=== PATIENT | female | born 1980 | race African-American/Black ===

== ENCOUNTER 2017-01-09 13:44 | Outpatient (CLI) | payer OTHER ==
[~2017-01-09] VITALS: Ht 157.5 cm; Wt 77.7 kg
[~2017-01-09 13:44] MED LIST: ACET500C PO; COLA100C5 PO; IBUP-1114 PO; PERC5TAB12 PO; PREN27TA3 PO
[2017-01-09 13:58] VITALS: BP 116/65
== END 2017-01-09 15:07 | disposition home or self-care (01) ==
LOC: M LDO 13:44
PROVIDERS: ATTEND Obstetrics & Gynecology
DX: O36.8130 Decreased fetal movements, third trimester, not applicable or unspecified (principal); Z3A.31 31 weeks gestation of pregnancy; Z88.7 Allergy status to serum and vaccine

== ENCOUNTER 2017-03-06 10:00 | Inpatient (IN) | payer OTHER ==
[~2017-03-06] VITALS: Ht 157.5 cm; Wt 75.2 kg
[2017-03-15] VITALS (7 sets, daily range): BP systolic 101–114; BP diastolic 59–69
[2017-03-15] MEDS ORDERED: LR 1,000 ML IV SCH ×4 (09:30→12:30)
[2017-03-15] MEDS ORDERED: BICITRA 30ML SOLN UDC PO ONE ×2 (09:45)
[2017-03-15 09:46] LABS: MEAN CORPUSCULAR HEMOGLOBIN 29.7 pg (27.0-33.0); MEAN CORPUSCULAR HGB CONC 33.2 g/dl (32.0-36.5); MEAN CORPUSCULAR VOLUME 89.4 fl (80.0-96.0); PLATELET COUNT, AUTOMATED 158 10^3/uL (150-450); RED CELL DISTRIBUTION WIDTH 14.2 % (11.5-14.5); WHITE BLOOD COUNT 6.3 10^3/uL (4.0-10.0)
[2017-03-15] MEDS ORDERED: NALOXONE INJ 0.4 MG/1 ML VIAL (J2310) IV PRN ×2 (10:49)
[2017-03-15] MEDS ORDERED: ONDANSETRON 4MG/2ML VIAL (J2405) IV PRN ×3 (10:49→12:30)
[2017-03-15] MEDS ORDERED: METOCLOPRAMIDE INJ 10MG/2ML VIAL (J2765) IV PRN ×2 (10:49→12:30)
[2017-03-15] MEDS ORDERED: NALBUPHINE HCL 10 MG/ML AMP (J2300) IV PRN (10:49)
[2017-03-15] MEDS ORDERED: MORPHINE PRES-FREE INJ 10 MG/10 ML VIAL (J2274) As Ordered ONE (10:58)
[2017-03-15] MEDS ORDERED: PHENYLephrine HCL 500 MCG/5 ML (100MCG/ML) SYRINGE (J2370) As Ordered ONE (10:58)
[2017-03-15] MEDS ORDERED: OXYTOCIN INJ 10 UNITS/ML VIAL (J2590) As Ordered ONE (10:59)
[2017-03-15] MEDS ORDERED: ePHEDrine SULFATE 25 MG/5 ML(5MG/ML) SYRINGE As Ordered ONE (10:59)
[2017-03-15] MEDS ORDERED: KETOROLAC 60 MG/2 ML VIAL (J1885) As Ordered ONE (10:59)
[2017-03-15] MEDS ORDERED: ONDANSETRON 4MG/2ML VIAL (J2405) As Ordered ONE (10:59)
[2017-03-15] MEDS ORDERED: MEASLES,MUMPS,RUBELLA VACCINE INJ (MMR-II) (90707) SC SCH (12:15)
[2017-03-15] MEDS ORDERED: PROMETHAZINE 25 MG TAB PO PRN (12:15)
[2017-03-15] MEDS ORDERED: RHOGAM 300 MCG (1500 IU) INJ (J2790) IM SCH (12:15)
[2017-03-15] MEDS ORDERED: PERCOCET 5MG/325MG TAB PO PRN ×2 (12:15→12:30)
[2017-03-15] MEDS ORDERED: METHYLERGONOVINE MALEATE 0.2 MG/ML VIAL (J2210) IM PRN (12:15)
[2017-03-15] MEDS ORDERED: fentaNYL 100 MCG/2 ML INJECTION (J3010) IV PRN (12:30)
[2017-03-15] MEDS ORDERED: KETOROLAC 30 MG/ML VIAL (J1885) IV SCH (13:00)
[2017-03-15] MEDS: PERCOCET 5MG/325MG TAB PO PRN (13:38)
[2017-03-15] MEDS: DOCUSATE SODIUM 100 MG CAP PO SCH ×2 (14:03→20:32)
[2017-03-15] MEDS: PRENATAL VITAMINS CHEWABLE TABLET PO SCH (14:04)
[2017-03-15] MEDS: KETOROLAC 30 MG/ML VIAL (J1885) IV SCH (17:53)
[2017-03-16] MEDS: KETOROLAC 30 MG/ML VIAL (J1885) IV SCH ×3 (00:01→12:04)
[2017-03-16 02:40] VITALS: BP 96/50
[2017-03-16 06:04] VITALS: BP 92/54
[2017-03-16 08:11] LABS: MEAN CORPUSCULAR HEMOGLOBIN 29.4 pg (27.0-33.0); MEAN CORPUSCULAR HGB CONC 32.4 g/dl (32.0-36.5); MEAN CORPUSCULAR VOLUME 90.8 fl (80.0-96.0); PLATELET COUNT, AUTOMATED 139 10^3/uL (150-450); RED CELL DISTRIBUTION WIDTH 14.3 % (11.5-14.5); WHITE BLOOD COUNT 7.9 10^3/uL (4.0-10.0)
[2017-03-16] MEDS: DOCUSATE SODIUM 100 MG CAP PO SCH ×2 (08:18→20:02)
[2017-03-16] MEDS: PRENATAL VITAMINS CHEWABLE TABLET PO SCH (08:18)
--- NOTE | 2017-03-16 08:39 | IPNPDOC ---
Progress Note Date of Service The patient was seen on 03/16/17 at 08:20. Progress Note POD 1 Veronica is a 36yo s/p uncomplicated RLTCS at 40w5d for hx of prior , now POD 1. She is doing well this morning. She is ambulating, voiding spontaneously and tolerating regular diet without issue. Minimal vaginal bleeding. Denies f/c/n/v/SOB/CP. Breast feeding well. Pain controlled on PO medications. Vitals wnl, afebrile General: WDWN, resting comfortably in bed Abdomen: soft, ND, appropriately tender, fundus firm at u-2cm, wound vac in place covering incision. No obvious erythema/drainage. Extremities: no pain with palpation of calves Labs: pre-op H/H 12/36.1 post-op H/H 10.2/31.5 Assessment: Veronica is a 36yo s/p uncomplicated RLTCS at 40w5d for hx of prior doing well POD 1. Vitals wnl, afebrile. Hemodynamically stable with no evidence of infection. She received 24hr of IV ancef and has wound vac in place for hx of wound infection after prior . Plan: -routine post-op and post- care -regular diet -motrin/percocet prn pain -wound vac in place will go home with patient -encourage breast feeding and ambulation -likely discharge home tomorrow Dr. Trinity Thompson MD [facility] VS, I&O, 24H, Fishbone Vital Signs/I&O Vital Signs Date Time Temp Pulse Resp B/P (MAP) Pulse Ox O2 Delivery O2 Flow Rate FiO2 03/16/17 06:04 98.1 76 16 92/54 (67) 03/16/17 02:40 99 Room Air Laboratory Data 24H LABS Laboratory Tests 2 03/15/17 09:37: Nucleated Red Blood Cells % (auto) 0.0, Urine Amphetamines Screen NEGATIVE, Urine Benzodiazepines Screen NEGATIVE, Urine Opiates Screen NEGATIVE, Urine Methadone Screen NEGATIVE, Urine Barbiturates Screen NEGATIVE, Urine Phencyclidine Screen NEGATIVE, Urine Cocaine Metabolite Screen NEGATIVE, Urine Cannabinoids Screen NEGATIVE, Syphilis Serology NONREACTIVE 03/16/17 07:58: Nucleated Red Blood Cells % (auto) 0.0 CBC/BMP Laboratory Tests 03/15/17 09:37 Red Blood Count 4.04, Mean Corpuscular Volume 89.4, Mean Corpuscular Hemoglobin 29.7, Mean Corpuscular Hemoglobin Concent 33.2, Red Cell Distribution Width 14.2 03/16/17 07:58 Red Blood Count 3.47 L, Mean Corpuscular Volume 90.8, Mean Corpuscular Hemoglobin 29.4, Mean Corpuscular Hemoglobin Concent 32.4, Red Cell Distribution Width 14.3 Trinity Thompson MD Mar 16, 2017 08:39
[2017-03-16 10:00] VITALS: BP 101/56
[2017-03-16 14:00] VITALS: BP 103/63
[2017-03-16] MEDS: PERCOCET 5MG/325MG TAB PO PRN ×2 (14:44→21:20)
[2017-03-16 18:00] VITALS: BP 114/69
[2017-03-16] MEDS: IBUPROFEN 800 MG TAB PO SCH (20:02)
[2017-03-17] MEDS: PERCOCET 5MG/325MG TAB PO PRN ×3 (01:02→09:38)
[2017-03-17] MEDS: IBUPROFEN 800 MG TAB PO SCH ×2 (03:50→12:31)
[2017-03-17 06:38] VITALS: BP 101/56
--- NOTE | 2017-03-17 09:05 | DS.PDOC ---
Discharge Summary General Date of Admission Mar 15, 2017 at 08:08 Date of Discharge [id number] Discharge Summary Discharge Summary Admission Diagnosis: Repeat delivery Discharge Diagnosis: s/p uncomplicated repeat delivery and prophylactic wound vacuum placement due to history of infection post-op with first Condition: stable Meds on discharge: Motrin, Lanolin, Percocet, Colace Hospital Course: Pt is a 36 y/o female admitted with plans for ERCS due to unfavorable cervix and not in the pelvis. Please see operative note for details. On POD#2, the pt had normal VS, the pt was tolerating reg diet, ambulating, pain was well controlled, minimal lochia. She was desirous of discharge and was discharged home with follow up in 1-2 and 6-8wks in OB clinic. Wound vac in place until the batteries run out, they can remove or they can come into the clinic for removal with Dr Contreras. Home recommendations: Nothing in vagina for 6 weeks, no submersion bathing for 4 weeks, no driving for 2 weeks, no shower or bath with wound vac. Sessions Vital Signs/I&Os Vital Signs Date Time Temp Pulse Resp B/P (MAP) Pulse Ox O2 Delivery O2 Flow Rate FiO2 03/17/17 06:38 98.2 72 18 101/56 (71) 03/17/17 05:33 Room Air 03/16/17 18:00 99 Discharge Medications Scheduled Multivitamins/ ( 27-1 mg) 1 Tab Tab, 1 TAB PO DAILY, (Reported) Scheduled PRN (Acetaminophen) 500 Mg Cap, 1,000 MG PO Q6HP PRN for PAIN, (Reported) Allergies Coded Allergies: Pertussis Vaccine (Verified Allergy, Unknown, FEVER, NAUSEA, SWELLING AT INJUECTION SITE, 02/27/17) SESSIONS,IVÁN Jay MD Mar 17, 2017 09:05
--- NOTE | 2017-03-17 09:07 | IPNPDOC ---
Text Note Date of Service The patient was seen on 03/17/17. NOTE POD2 prog note s/p ERCS States feeling well, no complaints. No heavy VB. Bonding well and feeding well. Pain controlled. No LP/CP/N/V. VSSAF CTAB RRR Ut at U-2, firm Ext no [employer]CE [employer] with wound vac in place, no output a/p: Doing well. D/C to home. Sessions VS,Nayla, I+O VSNayla, I+O Vital Signs Date Time Temp Pulse Resp B/P (MAP) Pulse Ox O2 Delivery O2 Flow Rate FiO2 03/17/17 06:38 98.2 72 18 101/56 (71) 03/17/17 05:33 Room Air 03/16/17 18:00 99 SESSIONS,IVÁN Jay MD Mar 17, 2017 09:07
[2017-03-17] MEDS ORDERED: IBUP-1114 PO (09:32)
[2017-03-17] MEDS ORDERED: COLA100C5 PO (09:32)
[2017-03-17] MEDS ORDERED: OXYC1TAB23 PO (09:32)
[2017-03-17] MEDS: DOCUSATE SODIUM 100 MG CAP PO SCH (09:38)
[2017-03-17] MEDS: PRENATAL VITAMINS CHEWABLE TABLET PO SCH (09:38)
== END 2017-03-17 13:50 | disposition home or self-care (01) | DRG 766 ==
LOC: M LDI 03-15 08:08 → M OBS 03-15 13:35
PROVIDERS: ADMIT Obstetrics & Gynecology; ATTEND Obstetrics & Gynecology
PROC: 10D00Z1 Extraction of Products of Conception, Low, Open Approach (ICD-10-PCS; principal; 2017-03-15 10:30)
DX: O34.211 Maternal care for low transverse scar from previous cesarean delivery (principal); Z37.0 Single live birth; Z88.7 Allergy status to serum and vaccine; Z3A.40 40 weeks gestation of pregnancy; O48.0 Post-term pregnancy

== ENCOUNTER 2017-03-21 17:51 | Inpatient (IN) | payer OTHER ==
[~2017-03-21] VITALS: Ht 157.5 cm; Wt 74.5 kg
[~2017-03-21 17:51] MED LIST changes: +OXYC1TAB23 PO
[2017-03-21] MEDS ORDERED: LR 1,000 ML IV SCH (18:55)
[2017-03-21] MEDS ORDERED: MOM 30ML SUSPENSION UDC PO PRN (19:00)
[2017-03-21] MEDS ORDERED: ONDANSETRON 4MG/2ML VIAL (J2405) IV PRN (19:00)
[2017-03-21] MEDS ORDERED: PERCOCET 5MG/325MG TAB PO PRN (19:00)
[2017-03-21] MEDS ORDERED: IBUPROFEN 800 MG TAB PO PRN (19:00)
[2017-03-21 20:30] VITALS: BP 134/80
[2017-03-21 21:29] LABS: ANION GAP 7 MEQ/L (8-16); BLOOD UREA NITROGEN 15 MG/DL (7-18); CALCIUM LEVEL 8.6 MG/DL (8.5-10.1); CARBON DIOXIDE LEVEL 23 MEQ/L (21-32); CHLORIDE LEVEL 110 MEQ/L (98-107); CREATININE FOR GFR 0.71 MG/DL (0.55-1.02); GLOMERULAR FILTRATION RATE > 60.0 (>60); GLUCOSE, FASTING 75 MG/DL (70-105); POTASSIUM SERUM 4.3 MEQ/L (3.5-5.1); SODIUM LEVEL 140 MEQ/L (136-145)
[2017-03-21 21:37] LABS: BASO # 0.1 10^3/uL (0.0-0.2); BASO % 1.1 % (0.0-1.0); EOS # 0.1 10^3/uL (0.0-0.50); EOS % 1.8 % (0.0-3.0); IMMATURE GRANULOCYTE % 0.5 % (0-0); LYMPH # 1.5 10^3/uL (1.5-4.5); LYMPH % 26.8 % (24.0-44.0); MEAN CORPUSCULAR HEMOGLOBIN 29.8 pg (27.0-33.0); MEAN CORPUSCULAR VOLUME 90.3 fl (80.0-96.0); MONO # 0.4 10^3/uL (0.0-0.8); MONO % 6.5 % (0.0-5.0); NEUTROPHILS # 3.5 10^3/uL (1.8-7.7); NEUTROPHILS % 63.3 % (36.0-66.0); PLATELET COUNT, AUTOMATED 247 10^3/uL (150-450); RED CELL DISTRIBUTION WIDTH 14.2 % (11.5-14.5); WHITE BLOOD COUNT 5.5 10^3/uL (4.0-10.0)
[2017-03-21] MEDS: PERCOCET 5MG/325MG TAB PO PRN (21:50)
[2017-03-21] MEDS: DOCUSATE SODIUM 100 MG CAP PO SCH (21:50)
[2017-03-21] MEDS: AMPICILLIN SOD/SULBACTAM SOD 3 GM in D5W MINI-BAG PLUS 100 ML IV SCH (21:53)
[2017-03-22 02:00] VITALS: BP 125/79
[2017-03-22] MEDS: AMPICILLIN SOD/SULBACTAM SOD 3 GM in D5W MINI-BAG PLUS 100 ML IV SCH ×4 (04:30→21:16)
[2017-03-22 06:00] VITALS: BP 119/61
[2017-03-22 06:13] LABS: MEAN CORPUSCULAR HEMOGLOBIN 29.3 pg (27.0-33.0); MEAN CORPUSCULAR HGB CONC 32.6 g/dl (32.0-36.5); MEAN CORPUSCULAR VOLUME 89.8 fl (80.0-96.0); PLATELET COUNT, AUTOMATED 216 10^3/uL (150-450); RED CELL DISTRIBUTION WIDTH 14.2 % (11.5-14.5)
--- NOTE | 2017-03-22 06:41 | HPEPDOC ---
[facility] Medical History & Physical Date of Admission Mar 21, 2017 Attending Physician: GABRIEL HICKEY MD History and Physical CHIEF COMPLAINT: fever, increasing abdominal pain after section on 03/15 HISTORY OF PRESENT ILLNESS: Veronica is a 36yo [id number] s/p uncomplicated RLTCS on 03/15/17 who presented to clinic today with increasing abdominal pain. She states she feels like her abdomen is a "hard ball" and there is "fluid under the skin". She reports that her vaginal bleeding stopped for two days but then started to increase today. She reports fever of 101F at home. Scant drainage from her abdominal incision. No foul smelling vaginal discharge. She is with no breast complaints. Has been voiding spontaneously without issue. Was constipated but now having daily bowel movements. Hx significant for prior wound infection after her first . She had 24hr of prophylactic Unasyn after her recent RLTCS as well as prophylactic wound vac placed to prevent wound infection. PAST MEDICAL HISTORY: 1. benign other than wound infection after previous section PAST SURGICAL HISTORY: 1. Appendectomy 2. PLTCS with subsequent wound infection 3. 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 REVIEW OF SYSTEMS: Endorses f/c, Denies n/v HOME MEDICATIONS: percocet (ran out recently), ibuprofen, colace, lanolin PHYSICAL EXAMINATION: VITAL SIGNS: bp 134/80, pulse 70, temp 98.8F, RR 19, O2 100% in RA GENERAL APPEARANCE: appears to be in pain though not distressed HEENT: conjunctival injection. CARDIOVASCULAR: S1S2 present no murmur LUNGS: CTAB ABDOMEN: uterine fundus firm at u-1cm but tender to palpation, abdomen feels warm, pfannensteil incision has steri strips overlying, no overt drainage or obvious erythema/induration (though clinic exam today there was some noted serous drainage and erythema) EXTREMITIES: no edema of BLE NEUROLOGICAL: A&O x3 LABORATORY DATA: 03/21/17 at 2100 CBC: WBC 5.5, H/H 10.4/31.5, plt 247 BMP: 140/4.3/110/23/15/0.7/75 Urinalysis: 12 RBC, 2 WBC, negative for bacteria/LE/nitrite blood and urine culture pending ASSESSMENT: Veronica is a 36yo [id number] s/p uncomplicated RLTCS on 03/15/17 with findings concerning for post-operative endometritis vs wound infection. Febrile by report, though not substantiated on admission. Fundal tenderness present, increased vaginal bleeding. No obvious signs of pfannensteil wound infection on my exam at time of admission, but earlier in clinic there was noted drainage and erythema. WBC count 5.5, creat 0.71. Post-op anemia noted. Hemodynamically stable. PLAN: -routine dixon care -blood cultures and urine cx pending -repeat CBC in am -Unasyn 3g q6hr with plan to continue until 24-48hr afebrile -percocet and ibuprofen prn pain -colace BID to prevent constipation -Regular diet with IVF at 75ml/hr but encourage PO hydration -Vitals q4hr, strict I/O's, anti-embolic stockings, encourage ambulation -encourage breast feeding Dr. Trinity Thompson MD [place] [facility] Home Medications Scheduled Docusate Sodium (Colace) 100 Mg Cap, 100 MG PO BID Ibuprofen (Ibuprofen) 400 Mg Tab, 800 MG PO Q8H Multivitamins/ ( 27-1 mg) 1 Tab Tab, 1 TAB PO DAILY Scheduled PRN (Acetaminophen) 500 Mg Cap, 1,000 MG PO Q6HP PRN for PAIN Oxycodone/Acetaminophen (Oxycodone/Acetaminophen 5-325 mg) 1 Tab Tab, 1 TAB PO Q4HP PRN for MILD PAIN (PS 1-4) Oxycodone/Acetaminophen (Oxycodone/Acetaminophen 5-325 mg) 1 Tab Tab, 2 TAB PO Q4HP PRN for MODERATE/SEVERE PAIN (PS 5-10) Allergies Coded Allergies: Pertussis Vaccine (Verified Allergy, Unknown, FEVER, NAUSEA, SWELLING AT INJUECTION SITE, 02/27/17) Trinity Thompson MD Mar 21, 2017 19:48
--- NOTE | 2017-03-22 06:50 | IPNPDOC ---
Text Note Date of Service The patient was seen on 03/22/17. NOTE Subjective: Veronica is a 36yo [id number] s/p uncomplicated RLTCS on 03/15/17 who was admitted overnight for increasing abdominal pain, fever by patient report, with suspicion for wound infection on exam in clinic yesterday. She states her pain is much improved this morning on the percocet/ibuprofen. She again notes that she feels there is "fluid under the skin" above her incision. She had another episode of moderate vaginal bleeding last night. She feels chills intermittently. Has been voiding spontaneously without issue. Was constipated but now having daily bowel movements. Denies nausea/vomiting. Feels hungry this morning. She is , pumping currently since feeding at the breast causes her abdominal pain. Her mother is present with her in the room to assist with the baby. Hx significant for prior wound infection after her first . She had 24hr of prophylactic Unasyn after her recent RLTCS as well as prophylactic wound vac placed to prevent wound infection. PHYSICAL EXAMINATION: VITAL SIGNS: bp 125/79 pulse 82, temp 97.7F, RR 16, O2 100% in RA GENERAL APPEARANCE: appears much more comfortable this morning, resting in bed HEENT: conjunctival injection improved ABDOMEN: uterine fundus firm at u-1cm but link wire fabric machine tender to palpation/manipulation , abdomen feels warm, pfannensteil incision has steri strips overlying, no overt drainage or obvious erythema/induration EXTREMITIES: trace edema of BLE NEUROLOGICAL: A&O x3 LABORATORY DATA: 03/12/17 at 0550 CBC: WBC 5, H/H 9.5/29.1, 216 03/21/17 at 2100 CBC: WBC 5.5, H/H 10.4/31.5, plt 247 BMP: 140/4.3/110/23/15/0.7/75 Urinalysis: 12 RBC, 2 WBC, negative for bacteria/LE/nitrite blood and urine culture pending ASSESSMENT: Veronica is a 36yo [id number] s/p uncomplicated RLTCS on 03/15/17 admitted overnight for post-operative endometritis vs wound infection. Febrile by report, though still not substantiated after admission. Fundal tenderness present. Still no obvious signs of pfannensteil wound infection. WBC count 5. Post-op anemia noted. Hemodynamically stable. PLAN: -continue routine dixon care -blood cultures and urine cx pending -Unasyn 3g q6hr with plan to continue until 24-48hr afebrile -percocet and ibuprofen prn pain -PNV and ferrous sulfate daily -colace BID to prevent constipation, Miralax prn -Regular diet -D/C IVF per pt request, encourage PO hydration, saline lock for IV abx -Vitals q4hr, strict I/O's, anti-embolic stockings, encourage ambulation -encourage breast feeding Dr. Trinity Thompson MD [place] [facility] VS,Fishbone, I+O VS, Fishbone, I+O Laboratory Tests 03/21/17 21:00 Red Blood Count 3.49 L, Mean Corpuscular Volume 90.3, Mean Corpuscular Hemoglobin 29.8, Mean Corpuscular Hemoglobin Concent 33.0, Red Cell Distribution Width 14.2, Neutrophils (%) (Auto) 63.3, Lymphocytes (%) (Auto) 26.8, Monocytes (%) (Auto) 6.5 H, Eosinophils (%) (Auto) 1.8, Basophils (%) ( Auto) 1.1 H, Neutrophils # (Auto) 3.5, Lymphocytes # (Auto) 1.5, Monocytes # ( Auto) 0.4, Eosinophils # (Auto) 0.1, Basophils # (Auto) 0.1, Calcium Level 8.6 03/22/17 05:50 Red Blood Count 3.24 L, Mean Corpuscular Volume 89.8, Mean Corpuscular Hemoglobin 29.3, Mean Corpuscular Hemoglobin Concent 32.6, Red Cell Distribution Width 14.2 Vital Signs Date Time Temp Pulse Resp B/P (MAP) Pulse Ox O2 Delivery O2 Flow Rate FiO2 03/22/17 02:00 97.7 82 16 125/79 (94) 100 Room Air Trinity Thompson MD Mar 22, 2017 06:50
[2017-03-22] MEDS: PRENATAL VITAMINS CHEWABLE TABLET PO SCH (08:40)
[2017-03-22] MEDS: FERROUS SULFATE 325MG TAB PO SCH (08:40)
[2017-03-22] MEDS: DOCUSATE SODIUM 100 MG CAP PO SCH ×2 (08:40→21:15)
[2017-03-22] MEDS: MIRALAX *UNIT DOSE* 17GM PACKET PO SCH (08:40)
[2017-03-22] MEDS: PERCOCET 5MG/325MG TAB PO PRN ×3 (08:41→21:16)
[2017-03-22 10:00] VITALS: BP 121/59
[2017-03-22 14:00] VITALS: BP 126/64
[2017-03-22 22:00] VITALS: BP 130/87
[2017-03-23] MEDS: PERCOCET 5MG/325MG TAB PO PRN ×2 (03:37→09:50)
[2017-03-23] MEDS: AMPICILLIN SOD/SULBACTAM SOD 3 GM in D5W MINI-BAG PLUS 100 ML IV SCH ×2 (03:37→08:08)
[2017-03-23 04:00] VITALS: BP 133/86
[2017-03-23 06:00] VITALS: BP 106/59
[2017-03-23] MEDS: MIRALAX *UNIT DOSE* 17GM PACKET PO SCH (08:08)
[2017-03-23] MEDS: FERROUS SULFATE 325MG TAB PO SCH (08:08)
[2017-03-23] MEDS: PRENATAL VITAMINS CHEWABLE TABLET PO SCH (08:08)
[2017-03-23] MEDS: DOCUSATE SODIUM 100 MG CAP PO SCH (08:08)
--- NOTE | 2017-03-23 08:09 | IPNPDOC ---
Text Note Date of Service The patient was seen on 03/23/17. NOTE 36yo [id number] s/p uncomplicated RLTCS on 03/15/17 who was admitted overnight for increasing abdominal pain, fever by patient report, with suspicion for wound infection on exam in clinic Saturday. She states her pain is much improved this morning on the percocet/ibuprofen, even from last night. Has been voiding spontaneously without issue. Having daily bowel movements. Denies nausea/ vomiting. Nursing well. Her mother is present with her in the room to assist with the baby. Hx significant for prior wound infection after her first . She had 24hr of prophylactic Unasyn after her recent RLTCS as well as prophylactic wound vac placed to prevent wound infection. PHYSICAL EXAMINATION: VSS GENERAL APPEARANCE: appears much more comfortable this morning, resting in bed ABDOMEN: uterine fundus firm at u-2cm slight nl tenderness, pfannensteil incision has steri strips overlying, no overt drainage or obvious erythema/ induration EXTREMITIES: No CCE NEUROLOGICAL: A&O x3 LABORATORY DATA: 03/22/17 at 0550 CBC: WBC 5, H/H 9.5/29.1, 216 ASSESSMENT: Veronica is a 36yo [id number] s/p uncomplicated RLTCS on 03/15/17 admitted 2 nights for post-operative endometritis vs wound infection. Still no obvious signs of pfannensteil wound infection. WBC count 5. Hemodynamically stable. Feeling well. Discharge home. VS,Fishbone, I+O VS, Fishbone, I+O Vital Signs Date Time Temp Pulse Resp B/P (MAP) Pulse Ox O2 Delivery O2 Flow Rate FiO2 03/23/17 06:00 98.8 71 16 106/59 (75) 99 Room Air SESSIONS,IVÁN Jay MD Mar 23, 2017 08:09
--- NOTE | 2017-03-23 08:14 | DS.PDOC ---
Discharge Summary General Date of Admission Mar 21, 2017 at 18:20 Date of Discharge [id number] Discharge Summary Discharge Summary Admission Diagnosis: Presumed postop infection Discharge Diagnosis: HINA Condition: stable, improved Meds on discharge: Hospital Course: 36yo [id number] s/p uncomplicated RLTCS on 03/15/17 admitted 2 nights for fear of and history of post-operative endometritis vs wound infection. No obvious signs of pfannensteil wound infection throughout. WBC count 5. Hemodynamically stable. Feeling well. OOB/Ambulating without issues. Home recommendations: Same as post- home recommendations. F/U in office with Dr Contreras next week. Sessions Vital Signs/I&Os Vital Signs Date Time Temp Pulse Resp B/P (MAP) Pulse Ox O2 Delivery O2 Flow Rate FiO2 03/23/17 06:00 98.8 71 16 106/59 (75) 99 Room Air Microbiology Microbiology 03/21/17 Blood Culture - Preliminary, Resulted No growth after 24 hours . All specim... 03/21/17 Urine Culture - Final, Complete Discharge Medications Scheduled Docusate Sodium (Colace) 100 Mg Cap, 100 MG PO BID, (Reported) Ibuprofen (Ibuprofen) 400 Mg Tab, 800 MG PO Q8H, (Reported) Multivitamins/ ( 27-1 mg) 1 Tab Tab, 1 TAB PO DAILY, (Reported) Scheduled PRN (Acetaminophen) 500 Mg Cap, 1,000 MG PO Q6HP PRN for PAIN, (Reported) Oxycodone/Acetaminophen (Oxycodone/Acetaminophen 5-325 mg) 1 Tab Tab, 1 TAB PO Q4HP PRN for MILD PAIN (PS 1-4), (Reported) Oxycodone/Acetaminophen (Oxycodone/Acetaminophen 5-325 mg) 1 Tab Tab, 2 TAB PO Q4HP PRN for MODERATE/SEVERE PAIN (PS 5-10), (Reported) Allergies Coded Allergies: Pertussis Vaccine (Verified Allergy, Unknown, FEVER, NAUSEA, SWELLING AT INJUECTION SITE, 02/27/17) SESSIONS,IVÁN Jay MD Mar 23, 2017 08:14
[2017-03-23] MEDS ORDERED: prenatal vitamin PO (09:17)
== END 2017-03-23 10:31 | disposition home or self-care (01) | DRG 776 ==
LOC: M MS4PR 18:20 → M MSPAV 20:00
PROVIDERS: ADMIT Obstetrics & Gynecology; ATTEND Obstetrics & Gynecology
DX: O86.12 Endometritis following delivery (principal); Z88.7 Allergy status to serum and vaccine; O86.0 Infection of obstetric surgical wound